=== PATIENT | female | born 1980 | race Hispanic/Latino ===

== ENCOUNTER 2022-08-08 21:14 | Emergency (ER) | payer SELFPAY ==
[~2022-08-08] VITALS: Ht 144.8 cm; Wt 72.6 kg
[2022-08-08] MEDS ORDERED: ACETAMINOPHEN 325 MG TAB PO ONE (22:00)
[2022-08-08] MEDS ORDERED: ONDANSETRON HCL 4 MG ORAL DISINTEGRATING TAB PO ONE (22:00)
[2022-08-08] MEDS ORDERED: ACETAMINOPHEN 325 MG TAB ONE (22:01)
[2022-08-08] MEDS ORDERED: ONDANSETRON HCL 4 MG ORAL DISINTEGRATING TAB ONE (22:08)
[2022-08-08 22:43] LABS: CLARITY,URINE SL CLOUDY (CLEAR); COLOR,URINE YELLOW (YELLOW); KETONES,URINE NEGATIVE (NEGATIVE); LEUKOCYTE ESTERASE ,URINE NEGATIVE (NEGATIVE); NITRITE,URINE NEGATIVE (NEGATIVE); PROTEIN,URINE DIPSTICK 1+ (NEGATIVE); URINE UROBILINOGEN 0.2 mg/dL (0.2 - 1)
[2022-08-08 22:53] LABS: AMORPHOUS SEDIMENT,URINE FEW (FEW); BACTERIA,URINE FEW /HPF; EPITHELIAL CELLS,URINE MODERATE /LPF; RBC,URINE 21-50 /HPF (0-5); WBC,URINE (MAN) 0-5 /HPF (0-5)
[2022-08-09] MEDS ORDERED: IBUPROFEN800 MG PO (00:24)
[2022-08-09] MEDS ORDERED: CEFDINIR300 MG PO (00:24)
[2022-08-09] MEDS ORDERED: ONDANSETRON ODT4 MG PO (00:24)
== END 2022-08-09 00:30 | disposition home or self-care (01) ==
LOC: ER 21:32
DX: R50.9 Fever, unspecified (principal); J02.0 Streptococcal pharyngitis; R11.2 Nausea with vomiting, unspecified; R05.9 Cough, unspecified; Z20.822 Contact with and (suspected) exposure to COVID-19
CPT/HCPCS: 81001; 81025; 83518; 99283; Q0126; U0002